=== PATIENT | male | born 1950 | race Caucasian/White ===

== ENCOUNTER 2022-01-11 18:20 | Observation (INO) | payer MEDICARE ==
[~2022-01-11] VITALS: Ht 182.9 cm; Wt 138.8 kg
[~2022-01-11 18:20] MED LIST: DEPAKOTE ER500 MG PO; DICLOFENAC POTA50 MG PO; DILTIAZEM 24HR120 M1 PO; ENDUR-ACIN500 MG PO; GLIPIZIDE5 MG PO; LISINOPRIL10 MG PO; LOW DOSE ASPIRI81 MG PO; METFORMIN HCL1000 MG PO; NEURONTIN400 MG PO; OXYBUTYNIN CHLO10 MG PO; PRAVACHOL40 MG PO
[2022-01-11 18:53] LABS: HEMOGLOBIN 10.8 gm/dl (14.0-17.5); RED BLOOD COUNT 3.48 M/UL (4.20-5.50); WHITE BLOOD COUNT 8.3 K/UL (4.5-11.0)
[2022-01-12] MEDS ORDERED: ZOLPIDEM TARTRAT5 MG PO (13:24)
[2022-01-12] MEDS ORDERED: MELATONIN3 MG PO (13:25)
[2022-01-12] MEDS ORDERED: CARVEDILOL6.25 MG PO (13:25)
[2022-01-12] MEDS ORDERED: PIOGLITAZONE HC45 MG PO (13:26)
[2022-01-12] MEDS ORDERED: PROTONIX40 MG PO (13:27)
[2022-01-12] MEDS ORDERED: CRESTOR40 MG PO (13:28)
[2022-01-13 04:56] LABS: HEMOGLOBIN 9.7 gm/dl (14.0-17.5)
[2022-01-13 05:05] LABS: RED BLOOD COUNT 3.07 M/UL (4.20-5.50)
[2022-01-13 05:16] LABS: BUN/CREATININE RATIO 19 (0-10)
[2022-01-13] MEDS ORDERED: BACTRIM DS TAB1 EACH PO (09:47)
[2022-01-13] MEDS ORDERED: CEPHALEXIN500 MG PO (09:47)
== END 2022-01-13 14:10 | disposition home or self-care (01) ==
LOC: ER1 18:20 → CDU 23:02 → M/S 01-12 14:41
PROVIDERS: Internal Medicine; Nurse Practitioner; Orthopaedic Surgery; ADMIT Internal Medicine
PROC: 0JQK0ZZ Repair Left Hand Subcutaneous Tissue and Fascia, Open Approach (ICD-10-PCS; principal; 2022-01-12 14:15)
DX: S51.812A Laceration without foreign body of left forearm, initial encounter (principal); I10 Essential (primary) hypertension; N17.9 Acute kidney failure, unspecified; E11.9 Type 2 diabetes mellitus without complications; E78.5 Hyperlipidemia, unspecified; I25.2 Old myocardial infarction; E66.01 Morbid (severe) obesity due to excess calories; Z68.41 Body mass index [BMI] 40.0-44.9, adult; Z23 Encounter for immunization; Z79.84 Long term (current) use of oral hypoglycemic drugs; Z79.890 Hormone replacement therapy; Z79.82 Long term (current) use of aspirin; Z79.899 Other long term (current) drug therapy; Z87.891 Personal history of nicotine dependence; W19.XXXA Unspecified fall, initial encounter; Y92.481 Parking lot as the place of occurrence of the external cause
CPT/HCPCS: 73090; 80048; 80053; 82962; 83036; 85025; 90471; 90715; 99284; G0378; J0690; J1170; J1885; J2704; J3010; J3370; J7030; J7120